=== PATIENT | male | born 1995 | race Caucasian/White ===

== ENCOUNTER 2016-07-23 11:52 | Day surgery (SDC) | payer BC ==
[~2016-07-23] VITALS: Ht 182.9 cm; Wt 72.0 kg
[~2016-07-23 11:52] MED LIST: CEFAZOLIN 1GM IVPB FOR OMNI 50 ML IV PRN; EPINEPHRINE 30 MG/30 ML VIAL. ONE; FENTANYL PF 100 MCG/2 ML VIAL. IV PRN; HYDROMORPHONE 2 MG/ML VIAL. IV PRN; IBUP-1027 PO; IV RINGERS,LACTATED 1000ML 1,000 ML IV SCH; LIDOCAINE 1% 1 ML SYRINGE. ID PRN; MORPHINE SULFATE 2 MG/ML DISP.SYRIN. IV PRN; ONDANSETRON PF 4 MG/2 ML VIAL. IV PRN; PROCHLORPERAZINE 10 MG/2 ML VIAL. IV PRN
[2016-07-23] MEDS ORDERED: ROPIVacaine 0.5% PF 30 ML VIAL. ONE (18:07)
[2016-07-23] MEDS ORDERED: DEXAMETHASONE SOD PHOS 20 MG/5 ML VIAL. ONE (18:17)
[2016-07-23] MEDS ORDERED: LIDOCAINE 2% 100 MG/5 ML DISP.SYRIN. ONE (18:17)
[2016-07-23] MEDS ORDERED: PROPOFOL 20 ML IV ONE (18:17)
[2016-07-23] MEDS ORDERED: ONDANSETRON PF 4 MG/2 ML VIAL. ONE (18:17)
[2016-07-23] MEDS ORDERED: EPINEPHRINE 30 MG/30 ML VIAL. ONE (18:19)
[2016-07-23] MEDS ORDERED: SEVOFLURANE 61 TO 120 MINUTES. IH ONE (18:20)
[2016-07-23] MEDS ORDERED: FENTANYL PF 250 MCG/5 ML VIAL. ONE (18:20)
--- NOTE | 2016-07-23 21:37 | DISCH ---
DISCHARGE INSTRUCTIONS Condition on Discharge Condition on Discharge: Stable Activity After Discharge Activity Instructions for Disc: Other, see below (immobilizer on at night may remove for pendulum swings, gentle motion arm at side) Diet after Discharge Diet after Discharge: Regular Wound Incision Care Wound/Incision Care: Ice to area for comfort Other wound/incision instructi: remove dressing 2 days may then shower Contacting the DRJarod after DC Call your doctor for: Concerns you may have Follow-Up Follow up with: Mica 1 week KIN CESAR MD Jul 23, 2016 21:37
[2016-07-23] MEDS ORDERED: HYDR-965 PO (21:39)
--- NOTE | 2016-07-23 21:41 | PDOC ---
BRIEF OPERATIVE NOTE Date: Jul 23, 2016 Pre-Op Diagnosis shoulder pain, labral tear Post-Op Diagnosis anterior inferior instability Procedure Performed right shoulder scope arthroscopic bankart repair Surgeon Mica Anesthesia Type: General, Regional Blood Loss 10cc Findings above Complications none KIN CESAR MD Jul 23, 2016 21:41
[2016-07-23 22:25] VITALS: BP 140/74
[2016-07-23] MEDS ORDERED: HYDROCODONE/APAP 7.5/325MG TABLET. PO ONE (22:30)
--- NOTE | 2016-07-25 10:09 | OP ---
DATE OF SURGERY: 07/23/2016 PREOPERATIVE DIAGNOSIS: Right shoulder pain with suspected labral tear. POSTOPERATIVE DIAGNOSIS: Anterior inferior subluxation. HISTORY: The patient is a 21-year-old male that had previously undergone an arthroscopic Bankart repair with probably 6-7 years ago and had done extremely well following his procedure. 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 He was told that ____ but noted significant pain carrying a back pack and with other required activities. He had since visited with me in the office and we went through some nonoperative treatment including physical therapy. Initially had gotten reasonable relief from his symptoms, but on return to more vigorous activities, noted significant pain in his shoulder and did not appear to display instability symptoms at that time, but instead had suspicion based on his examination findings for superior labral or biceps tendon pathology. Since this was limiting him from his desired activities and remained symptomatic, recurring despite physical therapy, we elected to undergo examination under anesthesia with a diagnostic arthroscopy to address his ongoing issues. He understands that while our most likely planned procedure is biceps tenodesis, if he has compromise of the superior labrum, that depending on exam and intraoperative findings, procedure could be modified as required and we had covered risks, benefits, postoperative course including the possibility of ongoing symptoms, failure to heal, nerve or blood vessel damage, medical or other anesthetic complications among others. All his questions were answered. Consent was obtained and he agrees to proceed with operative evaluation and treatment. DESCRIPTION OF PROCEDURE: The patient was identified, procedure verified, patient placed in the supine position on the operating room table. Adequate amounts of general endotracheal anesthesia and preexisting block were administered, placed in the decubitus position, right side up, all bony prominences were well padded and after timeout was performed, the patient and procedure identified and verified, examination under anesthesia was carried out. An audible click was reproduced on motion of the shoulder. He did appear to have anterior inferior capsular laxity resulting in some subluxation, no gross dislocation noted. No evidence of any multi-directional instability was noted. This did reproduce ____ clicking noted. He otherwise had full range of motion in all planes. The right upper extremity was then prepped and draped in standard sterile fashion and placed in the arthroscopic arm brice with a total of 10 pounds of traction. A standard posterior portal was established and anterior portal established using spinal needle localization and the shoulder joint was systematically examined. Rotator cuff insertion was normal in appearance ____. The biceps anchor at superior labrum and ____ were noted to be normal in appearance with no sign of fraying or instability. Subscapularis tendon insertion likewise noted to be normal in appearance. The anterior inferior capsule was noted to be stretched out somewhat and no anterior glenoid bone loss was noted. The glenohumeral joint surfaces were otherwise ____. Based on his examination and instability as well as the findings of an intact superior labrum and biceps anchor, I elected to proceed with a Bankart repair as there is anterior inferior instability that appeared to be his major issue, the capsule was detached anteriorly using a Blakeslee blade down to the 7 o'clock position posteriorly inferiorly. I placed a shaver blade down along to completely release deep tissue down to visible muscle and the anterior inferior aspect of the glenoid was debrided back to a healing bleeding bony surface. A total of three #2 sutures were passed with a disposable suture passing device at approximately the 6, 5 and 4 o'clock positions on the capsule. Excellent bite of tissue was noted and verified to be able to eliminate the capsular laxity. Next, ____ [employer]hew suture anchors were selected, the first of which placed on the most anterior suture and placed beyond the face of the glenoid at the 7 o'clock position and anchored. Capsular laxity was eliminated and labral bumper was starting to be formed. The next two sutures were then placed at the 4 and 3 o'clock positions respectively, again eliminating the remainder of the capsular laxity using a labral bumper and eliminating any of the instability with minimal limitation of his range of motion and external rotation and abduction. Again, stability was restored. Excellent fixation and repair of the labrum was noted. The joint was drained of arthroscopic fluid. Portals were closed with nylon suture. Sterile dressings were applied. He was placed in an immobilizer, extubated and transferred to postop holding in stable condition having tolerated the procedure well. KIN CESAR MD DR: SHIREEN/barbara JOB#: [id number] / [id number]
== END 2016-07-23 23:00 | disposition home or self-care (01) ==
LOC: SURG 11:52
PROVIDERS: ATTEND Orthopaedic Surgery
DX: M25.211 Flail joint, right shoulder (principal); M25.311 Other instability, right shoulder; Z72.89 Other problems related to lifestyle
CPT/HCPCS: 29806; C1713; J0171; J0690; J0780; J1100; J2405; J2704; J2795; J3010